=== PATIENT | male | born 1990 | race Caucasian/White ===

== ENCOUNTER → 2019-03-31 | Outpatient (CLI) | payer OTHER ==
--- NOTE | 2019-03-31 09:12 | Diagnostic Imaging Report ---
EXAMINATION: Left ankle at 8:46 AM INDICATION: Ankle pain Three views were obtained. There are no prior studies available for comparison. There is no fracture, dislocation or acute bony abnormality evident. The ankle mortise is not widened and the talar dome is smooth. There may be mild soft tissue edema along the lateral aspect of the ankle joint. Incidental note is made of a minute calcaneal spur. IMPRESSION: There is no evidence for an acute bony abnormality. Dictated by: Dictated on workstation # [id number]
--- NOTE | 2019-03-31 09:16 | Diagnostic Imaging Report ---
EXAMINATION: Left tibia and fibula INDICATION: Injury, leg pain AP and lateral views were obtained. The ankle joint was not included in its entirety on the AP view. However, the left ankle exam performed in conjunction with the study failed to show any abnormality of the ankle joint. There is no fracture or acute bony abnormality appreciated. The knee joint is fairly well maintained. The soft tissues are unremarkable. IMPRESSION: There is no evidence for an acute bony abnormality. Dictated by: Dictated on workstation # [id number]
== END ==
LOC: RAD FS 08:32
PROVIDERS: ATTEND Nurse Practitioner Family
DX: S89.92XA Unspecified injury of left lower leg, initial encounter (principal); M25.572 Pain in left ankle and joints of left foot; M79.662 Pain in left lower leg; M77.32 Calcaneal spur, left foot; X58.XXXA Exposure to other specified factors, initial encounter; Y93.67 Activity, basketball
CPT/HCPCS: 73590; 73610